=== PATIENT | male | born 1995 | race Caucasian/White ===

== ENCOUNTER 2021-02-22 19:05 | Emergency (ER) | payer SELFPAY ==
--- NOTE | 2021-02-22 19:24 | W.ED.GENADLT ---
HPI - General Adult General: Stated complaint: tooth pain Time Seen by Provider: 02/22/21 19:12 History of Present Illness: HPI narrative: HPI: [25]yo patient presenting to the emergency room with complaints of dental pain. Patient states that he noticed he had left lower jaw dental carry 2 days ago and since then has been taking nonprescribed antibiotics given to him by his friend. Patient had some facial swelling on the left side that has improved after the antibiotics. Patient has a sister who is a dentist who has scheduled him for an appointment next week. Patient presents emergency room requesting formal antibiotics and pain control. Onset: 2 Duration: ongoing Location: home Severity: mild/moderate Review of Systems Narrative: Constitutional: No fever, no chills. HEENT: No vision changes, +dental pain CV: No chest pain, no palpitations PULM: No productive cough, no dyspnea. GI: No abdominal pain, no N/V/D. : No Dysuria MSKEL: No muscle pain SKIN: No new rashes, no lesions. NEURO: No headache, no focal weakness. HEME: No visible bruises PSYCH: Normal mood Physical Exam Narrative: EXAM NARRATIVE: Head: Atraumatic Eyes: PERRL, conjunctiva without injection, eyes tracking ENT: Mucous membrane moist, +tooth #19 tenderness to palpation, no tooth subluxation, no gumline swelling, no tongue protrusion or elevation, uvula midline, no tonsillar/peritonsillar swelling or erythema, no TMJ tenderness NECK: Supple without lymphadenopathy, ROM of the neck intact, no anterior neck tenderness to palpation ro swelling LUNGS: LCTAB CV: RRR ABDOMEN: Soft, nontender EXTREMITY: Normal ROM SKIN: No rash or erythema NEURO: Awake and alert. No focal weakness PSYCH: Cooperative mood and affect MDM - General Adult MDM Narrative: Medical decision making narrative: [25]yo patient w/ hx of 2 days of dental caries resenting dental pain x 2 days w/ tenderness to palpation over affected tooth concerning for dental caries. Patient is HDS, afebrile. No signs of airway compromise. Patient not immunosuppressed. No e/o tooth fracture, avulsion, or bleeding socket. No e/o RPA, [employer], Gianluca?s angina, periapical abscess. No e/o gingival hyperplasia or concern for drug reaction. No signs of ANUG today on physical exam. Rx Ibuprofen and tylenol PRN pain, augmentin BID x 7 days Disposition: Discharge home. Discussed return precautions for odontogenic infections, signs of airway compromise and other dental pain emergencies. Patient reassures me that he will follow-up with his sister who is a dentist next week. Discharge Plan Discharge Patient Disposition: Home Clinical Impression: Dental cavity, Pain, dental Condition: Stable Prescriptions: New Augmentin 875-125 mg tablet 1 tab PO BID 7 Days Qty: 14 RF: 0 acetaminophen 500 mg tablet 500 mg PO Q6H PRN (Reason: pain) 7 Days Qty: 28 RF: 0 ibuprofen 600 mg tablet 600 mg PO Q8H PRN (Reason: pain) 7 Days RF: 0 Discharge Orders: Discharge ED (Routine); Ordered 02/22/21 Ordered By: Gray Templeton Discharge Diet: Advance as tolerated Discharge Activity: Resume usual activity Patient Instructions: Toothache (ED) Activity Restrictions/Additional Instructions: Please take your pain medicine and antibiotics as instructed. Come back to the emergency room you have worsening facial swelling, no swelling, or any new or concerning complaints. Your pain medicine as needed. Please follow-up with a dentist for further evaluation of your symptoms. Coding Level of Care Code ED [employer] for Monty Restrepo
[2021-02-22 19:30] VITALS: BP 130/80; PULSE 80; RESP 16; TEMP 36.4; O2SAT 99; BMI 20.3
== END 2021-02-22 20:08 | disposition home or self-care (01) ==
PROVIDERS: Emergency Provider Emergency Medicine
DX: K08.89 Other specified disorders of teeth and supporting structures (principal)
CPT/HCPCS: 99281